=== PATIENT | female | born 1965 | race Caucasian/White ===

== ENCOUNTER 2021-11-21 20:34 | Emergency (ER) | payer BC ==
--- NOTE | 2021-11-21 20:39 | ERPHSYRPT ---
- History of Present Illness Time Seen by Provider: 11/21/21 20:39 Source: patient Exam Limitations: no limitations Physician History: This is an obese 56-year-old patient of Mariam Vasquez who has a history of thyroid issues, diabetes and hyperlipidemia and presents with brief headache and visual changes after coughing spell. She took her blood pressure at home and it was 215/125. It stayed elevated despite changing the method of having her blood pressure checked. The headache has improved but not completely gone. The visual changes that were brief have subsided completely. Patient was taken off her blood pressure medication 3 to 6 months ago after weight loss and change in her diet. She denies chest pain. She has no abdominal pain. She is not any fevers. Severity: moderate Associated Symptoms: cough, headaches, No shortness of breath, No chest pain, No fever Allergies/Adverse Reactions: No Known Drug Allergies Allergy (Unverified 11/21/21 20:41) Home Medications: Atorvastatin Calcium 10 mg PO DAILY 11/21/21 [History] Levothyroxine Sodium 150 Mcg [Synthroid 150 Mcg] 150 mcg PO DAILY 11/21/21 [History] Metformin HCl 500 mg [Glucophage 500 MG] 500 mg PO BIDWM 11/21/21 [History] Travel Risk - International Travel Have you traveled outside of the country in past 3 weeks: No - Coronavirus Screening Are you exhibiting any of the following symptoms?: No Close contact with a COVID-19 positive Pt in past 14-21 Days: No - Review of Systems Constitutional: No Symptoms Eyes: Vision Changes (Brief and now completely resolved) Ears, Nose, & Throat: No Symptoms Respiratory: Cough (Mild earlier but this has resolved) Cardiac: No Symptoms Abdominal/Gastrointestinal: No Symptoms Genitourinary Symptoms: No Symptoms Musculoskeletal: No Symptoms Skin: No Symptoms Neurological: Headache Psychological: No Symptoms Endocrine: No Symptoms Hematologic/Lymphatic: No Symptoms Immunological/Allergic: No Symptoms All Other Systems: Reviewed and Negative - Past Medical History Pertinent Past Medical History: Yes - Past Surgical History Past Surgical History: Yes - Nursing Vital Signs Nursing Vital Signs: Initial Vital Signs Temperature 97.8 F 11/21/21 20:44 Pulse Rate 84 11/21/21 20:44 Respiratory Rate 20 11/21/21 20:44 Blood Pressure 189/112 11/21/21 20:44 O2 Sat by Pulse Oximetry 97 11/21/21 20:44 Pain Scale Pain Intensity 3 - Physical Exam General Appearance: no apparent distress, alert, anxiety, obese Eye Exam: PERRL/EOMI, eyes nml inspection Ears, Nose, Throat Exam: normal ENT inspection, moist mucous membranes Neck Exam: normal inspection, non-tender, supple, full range of motion Respiratory Exam: chest tenderness, respiratory distress, airway intact, No normal breath sounds, No lungs clear Cardiovascular Exam: regular rate/rhythm, normal heart sounds, normal peripheral pulses Gastrointestinal/Abdomen Exam: soft, normal bowel sounds, No tenderness Pelvic Exam: not done Rectal Exam: not done Back Exam: normal inspection, normal range of motion, No CVA tenderness, No vertebral tenderness Extremity Exam: normal inspection, normal range of motion, pelvis stable Neurologic Exam: alert, oriented x 3, cooperative, jack prizer II-XII nml as tested, normal mood/affect, nml cerebellar function, nml station & gait, sensation nml Skin Exam: normal color, warm, dry Lymphatic Exam: No adenopathy SpO2 Interpretation: normal O2 Delivery: Room Air - Course Nursing assessment & vital signs reviewed: Yes Ordered Tests: Active Orders 24 hr Category Date Time Status EKG-ER Only STAT Care 11/21/21 21:01 Active IV Insertion STAT Care 11/21/21 21:01 Active NPO (ED) STAT Care 11/21/21 21:00 Active NPO (ED) STAT Care 11/21/21 21:01 Active Pulse Oximetry (ED) STAT Care 11/21/21 21:01 Active HEAD WITHOUT CONTRAST [CT] Stat Exams 11/21/21 21:00 Ordered CBC W DIFF Stat Lab 11/21/21 21:16 Completed CMP Stat Lab 11/21/21 21:16 Completed T4 (Thyroxine) Stat Lab 11/21/21 21:16 Received TSH [TSH, 3RD Generation] Stat Lab 11/21/21 21:16 Received UA W/RFX CULTURE Stat Lab 11/21/21 Completed Medication Summary Discontinued Medications Generic Name Dose Route Start Last Admin Trade Name Freq PRN Reason Stop Dose Admin Enalaprilat 1.25 mg 11/21/21 21:09 11/21/21 21:19 Enalaprilat 2.5 Mg Injection IV 11/21/21 21:10 1.25 mg STAT ONE Administration Enalaprilat Confirm 11/21/21 21:18 Enalaprilat 2.5 Mg Injection Administered 11/21/21 21:19 Dose 2.5 mg IV .K-MED ONE Lab/Rad Data: Laboratory Result Diagrams 11/21/21 21:16 11/21/21 21:16 Laboratory Results 11/21/21 11/21/21 11/21/21 Range/Units Unknown 21:16 21:16 WBC 7.3 (4.0-10.5) x10^3/uL RBC 4.74 (4.1-5.4) x10^6/uL Hgb 13.5 (12.0-16.0) g/dL Hct 41.0 (35-47) % MCV 86.5 (78-100) fL MCH 28.5 (26-32) pg MCHC 32.9 (32-36) g/dL RDW 13.2 (11.5-14.0) % Plt Count 174 (150-450) x10^3/uL MPV 11.5 H (7.5-11.0) fL Gran % 49.6 (36.0-66.0) % Immature Gran % (Auto) 0.3 (0.00-0.4) % Nucleat RBC Rel Count 0.0 (0.00-0.1) % Eos # (Auto) 0.37 (0-0.5) x10^3/uL Immature Gran # (Auto) 0.02 (0.00-0.03) x10^3u/L Absolute Lymphs (auto) 2.83 (1.0-4.6) x10^3/uL Absolute Monos (auto) 0.39 (0.0-1.3) x10^3/uL Absolute Nucleated RBC 0.00 (0.00-0.01) x10^3u/L Lymphocytes % 38.9 (24.0-44.0) % Monocytes % 5.4 (0.0-12.0) % Eosinophils % 5.1 H (0.00-5.0) % Basophils % 0.7 (0.0-0.4) % Absolute Granulocytes 3.62 (1.4-6.9) x10^3/uL Basophils # 0.05 (0-0.4) x10^3/uL Sodium 137 (137-145) mmol/L Potassium 4.0 (3.5-5.1) mmol/L Chloride 103 (98-107) mmol/L Carbon Dioxide 22 (22-30) mmol/L Anion Gap 15.9 H (5-15) MEQ/L BUN 15 (7-17) mg/dL Creatinine 0.97 (0.52-1.04) mg/dL Estimated GFR > 60.0 ML/MIN Glucose 215 H (74-106) mg/dL Calcium 9.4 (8.4-10.2) mg/dL Total Bilirubin 0.50 (0.2-1.3) mg/dL AST 37 H (14-36) U/L ALT 28 (0-35) U/L Alkaline Phosphatase 86 (38-126) U/L Serum Total Protein 7.6 (6.3-8.2) g/dL Albumin 4.4 (3.5-5.0) g/dL Urinalys Dipstick Clnc MAIN LAB Urine Color YELLOW (YELLOW) Urine Appearance CLEAR (CLEAR) Urine pH 6.5 (5-6) Ur Specific [place] 1.025 (1.005-1.025) POC Urine Protein Conf NEGATIVE (Negative) Urine Ketones NEGATIVE (NEGATIVE) Urine Nitrite NEGATIVE (NEGATIVE) Urine Bilirubin NEGATIVE (NEGATIVE) Urine Urobilinogen 0.2 (0-1) mg/dL Urine Leukocytes SMALL (NEGATIVE) Urine WBC (Auto) 0-2 (0-5) /HPF Urine RBC (Auto) NONE (0-2) /HPF U Epithel Cells (Auto) NONE (FEW) /HPF Urine Bacteria (Auto) NONE (NEGATIVE) /HPF Urine RBC NEGATIVE (0-5) [place]/ul Ur Culture Indicated? NO Urine Glucose NEGATIVE (NEGATIVE) mg/dL - Progress Progress: improved, re-examined Progress Note: 11/21/21 22:06 CAT scan of the head without contrast shows no acute intracranial abnormality. Counseled pt/family regarding: lab results, diagnosis, need for follow-up, rad results - Departure Departure Disposition: Home Clinical Impression: Hypertension Condition: Stable Critical Care Time: No Referrals: ROSARIO VASQUEZ NP [Primary Care Provider] - Follow up/PCP as directed Additional Instructions: Take all your medication as prescribed. Call your primary care provider tomorrow morning, 11/22/2021 to make arrangements for follow-up appointment. Keep a daily log as discussed of your blood pressure 3 times a day and take that log information to your follow-up appointment.
[2021-11-21] MEDS ORDERED: ENALAPRILAT 2.5 MG INJECTION IV ONE ×2 (21:09→21:18)
[2021-11-21 21:20] LABS: Absolute Neutrophil Ct (ANC) 3.62 x10^3/uL (1.4-6.9); Basophil (Absolute #) 0.05 x10^3/uL (0-0.4); Eosinophil % 5.1 % (0.00-5.0); Eosinophil (Absolute #) 0.37 x10^3/uL (0-0.5); Hemoglobin 13.5 g/dL (12.0-16.0); Lymphocyte (Absolute #) 2.83 x10^3/uL (1.0-4.6); Lymphocytes % 38.9 % (24.0-44.0); Mean Cell Volume 86.5 fL (78-100); Mean Corpuscular Hemoglobin 28.5 pg (26-32); Mean Corpuscular Hgb Concent. 32.9 g/dL (32-36); Mean Platelet Volume 11.5 fL (7.5-11.0); Monocyte (Absolute #) 0.39 x10^3/uL (0.0-1.3); Monocytes % 5.4 % (0.0-12.0); Neutrophil % 49.6 % (36.0-66.0); Platelet Count 174 x10^3/uL (150-450); Red Blood Count 4.74 x10^6/uL (4.1-5.4); Red Cell Distribution Width 13.2 % (11.5-14.0); White Blood Count 7.3 x10^3/uL (4.0-10.5)
[2021-11-21 21:37] VITALS: O2SAT 96
[2021-11-21 21:38] LABS: ALBUMIN 4.4 g/dL (3.5-5.0); ALKALINE PHOSPHATASE 86 U/L (38-126); ANION GAP 15.9 MEQ/L (5-15); BLOOD UREA NITROGEN 15 mg/dL (7-17); CHLORIDE 103 mmol/L (98-107); Calcium 9.4 mg/dL (8.4-10.2); Carbon Dioxide 22 mmol/L (22-30); Creatinine 1 0.97 mg/dL (0.52-1.04); EST GLOMERULAR FILTRATION RATE > 60.0 ML/MIN; Glucose 215 mg/dL (74-106); SGOT/AST 37 U/L (14-36); SGPT/ALT 28 U/L (0-35); SODIUM 137 mmol/L (137-145); Total Protein 7.6 g/dL (6.3-8.2)
[2021-11-21 21:59] LABS: Appearance CLEAR (CLEAR); Bilirubin NEGATIVE (NEGATIVE); Dipstick done @ ? MAIN LAB; Glucose NEGATIVE (NEGATIVE); Ketones NEGATIVE (NEGATIVE); Nitrite NEGATIVE (NEGATIVE); Ph 6.5 (5-6); Protein,Urine Dip NEGATIVE (Negative); RBC NEGATIVE Ery/ul (0-5); Specific Gravity 1.025 (1.005-1.025); Urobilinogen 0.2 mg/dL (0-1)
[2021-11-21 22:01] VITALS: BP 150/80; PULSE 68
[2021-11-21 22:03] LABS: WBC 0-2 /HPF (0-5)
[2021-11-21 22:04] LABS: Urine Cultured Indicated? NO
== END 2021-11-21 22:48 | disposition home or self-care (01) ==
LOC: ED 20:34
DX: I10 Essential (primary) hypertension (principal); R51.9 Headache, unspecified; R05.9 Cough, unspecified; E11.9 Type 2 diabetes mellitus without complications; E78.5 Hyperlipidemia, unspecified; Z79.84 Long term (current) use of oral hypoglycemic drugs; Z79.899 Other long term (current) drug therapy
CPT/HCPCS: 36000; 36415; 70450; 80053; 81015; 84436; 84443; 85025; 93005; 94760; 96374; 99284